=== PATIENT | female | born 1995 | race Caucasian/White ===

== ENCOUNTER 2022-11-19 13:54 | Emergency (ER) | payer OTHER, SELFPAY ==
[2022-11-19 13:55] VITALS: BP 141/82; PULSE 105; RESP 18; TEMP 36.6; O2SAT 98; BMI 27.1
--- NOTE | 2022-11-19 14:10 | US_ITS ---
INDICATION: heavy bleeding EXAMINATION: Ultrasound US Transvaginal Non-OB TECHNIQUE: Transvaginal (for optimal evaluation of the adnexa) pelvic ultrasound was performed. Grayscale, spectral waveform, and color flow Doppler evaluation of the adnexa. COMPARISON: None. FINDINGS: UTERUS: Anteverted. The uterus measures 7.5 x 3.8 x 2.8 cm. There is no uterine mass. The endometrial stripe measures 2.1 mm in AP diameter which is within normal limits. RIGHT OVARY: The right ovary measures 4.1 x 3.5 x 2.7 cm. There is a 3.3 cm cyst in the right ovary. There is normal arterial inflow and venous outflow present in the right ovary. LEFT OVARY: The left ovary measures 2.5 x 2.9 x 2.7 cm. There is a 2.8 cm cyst in the left ovary There is normal arterial inflow and venous outflow present in the left ovary. FREE FLUID: There is mild to moderate free fluid in the cul-de-sac. US/Transvaginal Non- IMPRESSION: Small bilateral ovarian cysts. Small to moderate amount of free fluid in the cul-de-sac. Electronically Signed: Alen Campos MD at 15:46 EDT ,
[2022-11-19] MEDS: 0.9% Normal Saline 1,000 ML 1000 ML IV (14:34)
[2022-11-19 14:47] LABS: Bacteria 0 SEEN /hpf (None Seen); Mucous, Urine 0 SEEN /hpf (<or=2+)
[2022-11-19 14:50] LABS: Color, Urine Yellow (Yellow); Glucose, Dipstick Normal (Normal); Ketone-Dipstick Negative (Negative); Leukocyte Esterase-Dipstick 25 /ul (Negative); Nitrite-Dipstick Negative (Negative); Occult Blood-Urine 250 /ul (Negative); Protein-Dipstick Negative (Negative); Urine Bilirubin Dipstick Negative (Negative); Urine Clarity Clear (Clear); Urine Urobilinogen Normal (Normal)
[2022-11-19 14:52] LABS: Absolute Lymphocyte Count 2.79 X10^3/uL (0.83-4.51); Absolute Neutrophil Count 4.7 X10^3/uL (2.0-7.7); Basophil# 0.06 X10^3/uL; Basophil% 0.7 % (0-1); Eosinophil# 0.35 X10^3/uL; Hematocrit 42.3 % (37-47); Hemoglobin 14.6 g/dL (12.0-15.0); Lymphocyte # 2.79 X10^3/ul (0.83-4.51); Lymphocyte % 31.5 % (19-41); Mean Corp Hgb Conc 34.5 g/dL (32-36); Mean Corpuscular Hgb 28.5 pg (27.0-32.0); Mean Corpuscular Volume 82.5 fL (81-99); Mean Platelet Vol. 10.3 fl (6.2-12.0); Monocyte% 10.2 % (0-10); NRBC Flagged by Analyzer 0 % (0-5); Neutrophil # 4.73 X10^3/uL (2.7-7.7); Neutrophil % 53.4 % (47-70); Platelet Count 204 K/mm3 (150-450); RBC Distribution Width CV 12.5 % (11.6-14.6); RBC Distribution Width SD 37.8 fl (35.1-43.9); Red Blood Count 5.13 M/mm3 (4.2-5.4); White Blood Count 8.9 K/mm3 (4.4-11.0)
--- NOTE | 2022-11-19 15:02 | ED.RN ---
PAD OFFERED TO PT AFTER PT GAVE URINE SAMPLE. PT DENIED NEEDING PAD.
[2022-11-19 15:04] LABS: Internal QC Validated? YES +Cl - CLEAR BKGD; Pregnancy, Serum, hCG Quali. NEGATIVE Negative
[2022-11-19 15:06] LABS: Anion Gap 2 (5-15); BUN 13 mg/dL (7-18); Calcium,Total 8.9 mg/dL (8.5-10.1); Chloride 109 mmol/L (98-107); Creatinine, Serum 0.59 mg/dL (0.55-1.02); EST Glomerular Filtration Rate 131 mL/min (>60); Est Glom Filt Rate - Afr Amer 159 mL/min (>60); Estimated Creatinine Clearance 131.16 ml/min; Glucose 101 mg/dL (74-106); Potassium 4.1 mmol/L (3.5-5.1); Red Blood Cells-Urine 0-5 SEEN /hpf (0-5); Sodium Level 140 mmol/L (136-145); Squamous Epithelial Cells - UA 0-5 SEEN /hpf (5-10); White Blood Cells 0-5 SEEN /hpf (0-5)
[2022-11-19 16:08] VITALS: BP 119/63; PULSE 89; RESP 18; O2SAT 95
[2022-11-19 16:47] VITALS: BP 116/72; PULSE 83; RESP 18; O2SAT 98
--- NOTE | 2022-11-19 21:28 | ED.VIS.FEGU ---
HPI HPI - Female History of Present Illness Chief Complaint: Vag Bleeding Narrative Narrative: 27-year-old female with vaginal bleeding x2 days. She states has had heavy bleeding and is going through for super tampons a day. Patient states she is on control and states she has not had a period in years. She does not believe she is . She has mild abdominal cramping. No fevers or chills. No urinary complaints. She states she is passing clots now. PFSH PFSH Medical History Acute conjunctivitis, right eye Home Medications albuterol sulfate 90 mcg/actuation aerosol inhaler 2 puff inhalation Q6H PRN 01/15/22 [History Last Taken Unknown] calcium carbonate 200 mg calcium (500 mg) chewable tablet (Tums) 200 mg PO TID 01/15/22 [History Last Taken Unknown] cetirizine 10 mg tablet (Zyrtec) 10 mg PO DAILY PRN allergy symptoms 01/15/22 [History Last Taken Unknown] paroxetine HCl 20 mg tablet (Paxil) 20 mg PO DAILY 01/15/22 [History Last Taken Unknown] tobramycin 0.3 % eye drops (Tobrex) 1 drp ophthalmic (eye) Q2H #5 mL 02/15/22 [Rx Last Taken Unknown] Allergy/AdvReac Type Severity Reaction Status Date / Time No Known Allergies Allergy Verified 11/19/22 13:57 Family History Mother Anxiety Father Asthma Brother Asthma Social History adopted: No Smoking Status: Never smoker alcohol intake: never what type of physical activity do you participate in: running ROS ROS ED Constitutional Constitutional ED: Denies chills, fever(s) or sweats Eyes Eyes: Denies blurry vision or change in vision ENT ENT ED: Denies ear pain or sore throat Cardiovascular Cardiovascular: Denies chest pain, palpitations or racing heartbeat Respiratory/Chest Respiratory/Chest: Denies cough, dyspnea or sputum Gastrointestinal Gastrointestinal: Reports abdominal pain; Denies constipation, diarrhea, nausea or vomiting Genitourinary Genitourinary ED: Reports other Details: Vaginal bleeding ; Denies dysuria, hematuria or urinary frequency Musculoskeletal Musculoskeletal: Denies arthralgias, myalgias or neck pain Integumentary Denies abscess, Abrasions or rash Neurologic Neurologic: Denies headache(s), paresthesias or weakness Psychiatric Psychiatric: Denies anxiety, depression, suicidal ideation or suicidal thoughts Endocrine Endocrinology: Denies polydipsia or polyuria EXAM Physical Exam Const Vital Signs: 11/19/22 13:55 11/19/22 16:08 11/19/22 16:47 Temperature 97.8 F Temperature Source Temporal Pulse Rate 105 H 89 83 Respiratory Rate 18 18 18 Blood Pressure 141/82 H 119/63 116/72 Blood Pressure Mean 101 81 Pulse Ox 98 95 98 Oxygen Delivery Method Room Air Room Air Positive well nourished General Appearance ED: NAD HEENT Reports moist mucous membranes Eyes PERRL and EOMs intact bilaterally Chest Wall inspection of chest normal Resp normal respiratory effort GI GI Narrative: Benign abdominal exam Back/Spine no CVA tenderness Extremity normal to inspection Neuro oriented x3 and CN's II-XII intact bilaterally Sensorium / Orientation: alert Motor Exam: strength 5/5 throughout Psych mental status grossly normal Skin no rashes or lesions noted MDM MDM MDM Narrative Medical decision making narrative: Patient presenting with vaginal bleeding. CBC was ordered to assess for anemia, white blood cell count. BMP to assess renal function, electrolytes. Urinalysis to assess for UTI. Differential includes dysfunctional uterine bleeding, ovarian cyst, ectopic , first trimester , miscarriage. CBC shows no leukocytosis. Hemoglobin [place] are stable. Platelets normal. Renal function electrolytes within normal limits. hCG negative. Urinalysis negative for infection. Transvaginal ultrasound shows small bilateral ovarian cyst but no evidence of anything else. Patient will be discharged to follow-up with her [employer]. Return precautions discussed. Impression: 1. Dysfunctional uterine bleeding Lab Data Labs: Laboratory Results - last 24 hr 11/19/22 14:24 WBC 8.9 RBC 5.13 Hgb 14.6 Hct 42.3 MCV 82.5 MCH 28.5 MCHC 34.5 RDW Std Deviation 37.8 RDW Coeff of [place] 12.5 Plt Count 204 MPV 10.3 Immature Gran % (Auto) 0.200 Neut % (Auto) 53.4 Lymph % (Auto) 31.5 Harvey % (Auto) 10.2 H Eos % (Auto) 4.0 Baso % (Auto) 0.7 Absolute Neuts (auto) 4.7 Absolute Lymphs (auto) 2.79 Nucleated RBC % 0 Sodium 140 Potassium 4.1 Chloride 109 H Carbon Dioxide 29.0 Anion Gap 2 L BUN 13 Creatinine 0.59 Estim Creat Clear Calc 131.16 Est GFR (MDRD) Af Amer 159 Est GFR (MDRD) Non-Af 131 BUN/Creatinine Ratio 22.0 H Glucose 101 Calcium 8.9 Serum , Qual NEGATIVE Urine Color Yellow Urine Clarity Clear Urine pH 6.0 Ur Specific [place] 1.020 Urine Protein Negative Urine Glucose (UA) Normal Urine Ketones Negative Urine Occult Blood 250 H Urine Nitrite Negative Urine Bilirubin Negative Urine Urobilinogen Normal Ur Leukocyte Esterase 25 H Urine RBC 0-5 SEEN Urine WBC 0-5 SEEN Ur Squamous Epith Cells 0-5 SEEN Urine Bacteria 0 SEEN Urine Mucus 0 SEEN Radiography Diagnostic Testing: Clinical Impression(s) from Imaging Studies Transvaginal US 11/19/22 14:10 IMPRESSION: Small bilateral ovarian cysts. Small to moderate amount of free fluid in the cul-de-sac. Electronically Signed: Alen Campos MD at 15:46 EDT , Discharge Plan Triage Chief Complaint: Vag Bleeding ED Provider: Dandre Ibrahim Dx/Rx/DC Orders Instructions: ED Dysfunctional Uterine Bleeding Prescriptions: No Action paroxetine HCl [Paxil] 20 mg tablet 20 mg PO DAILY cetirizine [Zyrtec] 10 mg tablet 10 mg PO DAILY PRN (Reason: allergy symptoms) albuterol sulfate 90 mcg/actuation HFA aerosol inhaler 2 puff inhalation Q6H PRN calcium carbonate [Tums] 200 mg calcium (500 mg) tablet,chewable 200 mg PO TID tobramycin [Tobrex] 0.3 % drops 1 drp ophthalmic (eye) Q2H Qty: 5 0RF Rx Instructions: to right eye while awake for 5 days Primary Care Provider: Elton Ballard Referrals: Elton Ballard MD [Primary Care Provider] - Disposition Disposition: Home, Self Care Discharge Date/Time: 11/19/22 16:52
== END 2022-11-19 16:52 | disposition home or self-care (01) ==
PROVIDERS: Emergency Provider Student in an Organized Health Care Education/Training Program; PCP Family Medicine; Visit Provider Student in an Organized Health Care Education/Training Program
DX: N93.8 Other specified abnormal uterine and vaginal bleeding (principal)
CPT/HCPCS: 76830; 80048; 81001; 84703; 85025; 96360; 96361; 99283; J7030; A4216